=== PATIENT | male | born 1950 | race Caucasian/White ===

== ENCOUNTER 2019-02-10 13:23 | Inpatient (IN) | payer MEDICARE, OTHER ==
[2019-02-10] MEDS ORDERED: IOHEXOL 300MG/ML 30 ML BTL (15:15)
[2019-02-10] MEDS ORDERED: PROPOFOL 20 ML (15:17)
[2019-02-10] MEDS ORDERED: ROCURONIUM 50 MG INJ ×2 (15:17→16:09)
[2019-02-10] MEDS ORDERED: LIDOCAINE 2% (SDV) 5 ML INJ (15:17)
[2019-02-10] MEDS ORDERED: NEOSTIGMINE 3 MG/3 ML SYRINGE (16:10)
[2019-02-10] MEDS ORDERED: GLYCOPYRROLATE 0.4 MG INJ (16:10)
[2019-02-10] MEDS ORDERED: LABETALOL HCL 20MG INJ IV (16:30)
[2019-02-10] MEDS ORDERED: ALBUTEROL 0.083% (NEB) 2.5 MG/3 ML AMP HHN (16:30)
[2019-02-10] MEDS ORDERED: DIPHENHYDRAMINE 50 MG INJ IV (16:30)
[2019-02-10] MEDS ORDERED: ONDANSETRON 4 MG INJ IV ×2 (16:30→17:30)
[2019-02-10] MEDS ORDERED: hydrALAzine 20 MG INJ IV (16:30)
[2019-02-10] MEDS ORDERED: EPHEDrine 25 MG/5 ML SYG IV (16:30)
[2019-02-10] MEDS ORDERED: FENTAnyl 50 MCG/ML VIAL IV ×2 (16:30)
[2019-02-10] MEDS ORDERED: SUGAMMADEX SODIUM 200 MG/2 ML VIAL IV ×2 (16:38→17:00)
[2019-02-10] MEDS ORDERED: HYDROCODONE/APAP (5/325) TAB PO (17:30)
[2019-02-10] MEDS ORDERED: ACETAMINOPHEN 325 MG TAB PO (17:30)
[2019-02-10] MEDS ORDERED: NACL 0.9% 3 ML SYG IV (17:30)
[2019-02-10 17:57] LABS: ADD MAN DIFF? NO
[2019-02-10 18:02] LABS: WHITE BLOOD COUNT 6.2 10^3/ul (4.8-10.8)
[2019-02-10 18:02] LABS: BASOPHILS % 0.3 % (0.0-2.0); EOSINOPHILS # 0.2 10^3/ul (0.0-0.5); EOSINOPHILS % 2.4 % (0.0-7.0); HEMATOCRIT 41.5 % (42.0-52.0); HEMOGLOBIN 13.2 g/dl (14.0-18.0); LYMPHOCYTES # 0.8 10^3/ul (0.8-2.9); LYMPHOCYTES % 12.4 % (15.0-51.0); MEAN CORPUSCULAR HEMOGLOBIN 29.1 pg (29.0-33.0); MEAN CORPUSCULAR HGB CONC 31.8 g/dl (32.0-37.0); MEAN CORPUSCULAR VOLUME 91.6 fl (82.0-101.0); MEAN PLATELET VOLUME 9.5 fl (7.4-10.4); MONOCYTE # 0.4 10^3/ul (0.3-0.9); MONOCYTES % 6.9 % (0.0-11.0); NEUTROPHIL # 4.8 10^3/ul (1.6-7.5); NEUTROPHILS % 77.7 % (39.0-77.0); PLATELET COUNT 121 10^3/UL (140-415); RED BLOOD COUNT 4.53 10^6/ul (4.70-6.10); RED CELL DISTRIBUTION WIDTH 15.1 % (11.5-14.5)
[2019-02-10 18:16] LABS: AADO2 Arterial 302.7 mmHg (7.0-24.0); Allen Test ACCEPTAB; Arterial Blood Gas Oxygen Sat 99.3 mmHG (95.0-98.0); Arterial COHb 0.6 % (0.0-3.0); Arterial Fraction of Oxyhgb 98.4 % (93.0-99.0); Arterial HCO3 24.5 mmol/L (22.0-26.0); Arterial MetHb 0.3 % (0.0-1.5); Arterial pCO2 35.7 mmhg (35-45); Blood Gas IEPAP 20/5; Blood Gas PS 15; MODE MASK - BIPAP; Site Left Radial
[2019-02-10 18:25] LABS: ALANINE AMINOTRANSFERASE 64 IU/L (13-69); ALBUMIN 3.3 g/dl (3.3-4.9); ALBUMIN/GLOBULIN RATIO 1.17; ALKALINE PHOSPHATASE 116 IU/L (42-121); ANION GAP 7 (5-13); ASPARTATE AMINO TRANSFERASE 79 IU/L (15-46); BILIRUBIN,INDIRECT 1.1 mg/dl (0-1.1); BILIRUBIN,TOTAL 1.3 mg/dl (0.2-1.3); CALCIUM 9.2 mg/dl (8.4-10.2); CARBON DIOXIDE 28 mmol/L (21-31); CHLORIDE 104 mmol/L (97-110); Estimated GFR 44 mL/min (>60); GLUCOSE 151 mg/dl (70-220); POTASSIUM 3.8 mmol/L (3.5-5.1); SODIUM 139 mmol/L (135-144); TOTAL PROTEIN 6.1 g/dl (6.1-8.1)
[2019-02-10 18:33] LABS: BLOOD UREA NITROGEN 24 mg/dl (7-20)
[2019-02-10 18:33] LABS: B-TYPE NATRIURETIC PEPTIDE 1580 PG/ML (0-125)
[2019-02-10 18:34] LABS: CREATININE 1.58 mg/dl (0.61-1.24)
[2019-02-10 18:35] LABS: TROPONIN-I 0.028 ng/ml (0.000-0.120)
[2019-02-10] MEDS: LACTATED RINGER'S 1,000 ML IV (18:42)
[2019-02-10] MEDS: PIPER-TAZO 3.375 GM IV (PMX) 100 ML IVPB ×2 (18:46→23:30)
[2019-02-10] MEDS: INDOMETHACIN 50 MG SUPP PR (19:39)
[2019-02-10 19:45] LABS: PLATELET COUNT 121 10^3/UL (140-415)
[2019-02-10 20:40] LABS: INR 1.19; PARTIAL THROMBOPLASTIN TIME 21.3 Sec (23.0-35.0); PROTIME 15.2 Sec (11.9-14.9); PT RATIO 1.2
[2019-02-10 20:41] LABS: THROMBIN TIME 14.9 SEC (13.8-19.1)
[2019-02-10] MEDS ORDERED: NON-FORMULARY/PATIENT OWN MED (Simvastatin 10 MG) PO (21:00)
[2019-02-10] MEDS: FUROSEMIDE 40 MG INJ IV (21:19)
[2019-02-10] MEDS: WARFARIN 5 MG TAB PO (21:27)
[2019-02-10] MEDS: FEBUXOSTAT 40 MG TABLET PO (21:27)
[2019-02-10] MEDS: ATORVASTATIN 10 MG TAB PO (21:28)
[2019-02-11 01:20] LABS: TROPONIN-I 0.072 ng/ml (0.000-0.120)
[2019-02-11 05:31] LABS: ADD MAN DIFF? NO
[2019-02-11 05:43] LABS: WHITE BLOOD COUNT 8.7 10^3/ul (4.8-10.8)
[2019-02-11 05:43] LABS: BASOPHIL # 0.1 10^3/ul (0.0-0.1); BASOPHILS % 0.6 % (0.0-2.0); EOSINOPHILS # 0.2 10^3/ul (0.0-0.5); EOSINOPHILS % 1.8 % (0.0-7.0); HEMATOCRIT 42.6 % (42.0-52.0); HEMOGLOBIN 13.3 g/dl (14.0-18.0); LYMPHOCYTES % 11.3 % (15.0-51.0); MEAN CORPUSCULAR HEMOGLOBIN 28.7 pg (29.0-33.0); MEAN CORPUSCULAR HGB CONC 31.2 g/dl (32.0-37.0); MEAN PLATELET VOLUME 9.5 fl (7.4-10.4); MONOCYTE # 0.8 10^3/ul (0.3-0.9); MONOCYTES % 8.7 % (0.0-11.0); NEUTROPHIL # 6.7 10^3/ul (1.6-7.5); NEUTROPHILS % 77.4 % (39.0-77.0); PLATELET COUNT 131 10^3/UL (140-415); RED BLOOD COUNT 4.63 10^6/ul (4.70-6.10); RED CELL DISTRIBUTION WIDTH 14.6 % (11.5-14.5)
[2019-02-11 05:49] LABS: HEMOGLOBIN A1C 4.8 % (0-5.9)
[2019-02-11 06:07] LABS: ALANINE AMINOTRANSFERASE 71 IU/L (13-69); ALKALINE PHOSPHATASE 99 IU/L (42-121); ANION GAP 6 (5-13); ASPARTATE AMINO TRANSFERASE 62 IU/L (15-46); BILIRUBIN,INDIRECT 1.3 mg/dl (0-1.1); BILIRUBIN,TOTAL 1.3 mg/dl (0.2-1.3); BLOOD UREA NITROGEN 28 mg/dl (7-20); CALCIUM 9.2 mg/dl (8.4-10.2); CARBON DIOXIDE 32 mmol/L (21-31); CHLORIDE 103 mmol/L (97-110); CREATININE 1.75 mg/dl (0.61-1.24); Estimated GFR 39 mL/min (>60); GLUCOSE 71 mg/dl (70-220); MAGNESIUM 1.7 mg/dl (1.7-2.5); POTASSIUM 4.5 mmol/L (3.5-5.1); SODIUM 141 mmol/L (135-144)
[2019-02-11] MEDS: PIPER-TAZO 3.375 GM IV (PMX) 100 ML IVPB ×3 (06:12→18:55)
[2019-02-11] MEDS: LEVOTHYROXINE 150 MCG TAB PO (06:13)
[2019-02-11 06:20] LABS: TROPONIN-I 0.085 ng/ml (0.000-0.120)
[2019-02-11] MEDS: BENAZEPRIL 5 MG TAB PO (09:00)
[2019-02-11] MEDS ORDERED: FUROSEMIDE 40 MG TAB PO (09:00)
[2019-02-11] MEDS: FUROSEMIDE 40 MG INJ IV (09:04)
[2019-02-11] MEDS: ASCORBIC ACID 500 MG TAB PO (09:05)
[2019-02-11] MEDS: COLCHICINE 0.6 MG CAP PO (09:05)
[2019-02-11] MEDS: MULTIVITAMINS THERAPEUTIC TAB PO (09:06)
[2019-02-11] MEDS: PANTOPRAZOLE (EC) 40 MG TAB PO (09:06)
[2019-02-11] MEDS: AMIODARONE 200 MG TAB PO (09:06)
[2019-02-11] MEDS: CHOLECALCIFEROL 1,000 UNIT TAB PO (09:06)
[2019-02-11] MEDS: SPIRONOLACTONE 25 MG TAB PO (09:06)
[2019-02-11 12:12] LABS: ADD UMIC YES; UR ASCORBIC ACID 40 mg/dL (NEGATIVE); UR BACTERIA FEW /HPF (NONE SEEN); UR BILIRUBIN (Dip) NEGATIVE (NEGATIVE); UR BLOOD (Dip) NEGATIVE (NEGATIVE); UR CLARITY CLOUDY (CLEAR); UR COLOR AMBER (YELLOW); UR GLUCOSE (Dip) NEGATIVE (NEGATIVE); UR KETONES (Dip) TRACE mg/dL (NEGATIVE); UR LEUKOCYTE ESTERASE (Dip) 2+ Leu/ul (NEGATIVE); UR NITRITE (Dip) NEGATIVE (NEGATIVE); UR RBC 7 /HPF (0-5); UR SPECIFIC GRAVITY (Dip) 1.014 (1.003-1.030); UR TOTAL PROTEIN (Dip) 1+ mg/dl (NEGATIVE); UR UROBILINOGEN (Dip) NEGATIVE (NEGATIVE); UR WBC 175 /HPF (0-5)
[2019-02-11 12:28] LABS: CREATININE,URINE RANDOM 81.98 mg/dl (20-370)
[2019-02-11 12:28] LABS: SODIUM,URINE RANDOM 100 mmol/L (30-90)
[2019-02-11 13:45] LABS: PROCALCITONIN 0.22 ng/mL (0.00-0.10)
[2019-02-11] MEDS: FEBUXOSTAT 40 MG TABLET PO (21:05)
[2019-02-11] MEDS: ATORVASTATIN 10 MG TAB PO (21:06)
[2019-02-11] MEDS: WARFARIN 5 MG TAB PO (21:07)
[2019-02-12] MEDS: PIPER-TAZO 3.375 GM IV (PMX) 100 ML IVPB ×2 (00:17→06:03)
[2019-02-12] MEDS: LEVOTHYROXINE 150 MCG TAB PO (05:56)
[2019-02-12 06:07] LABS: ADD MAN DIFF? NO
[2019-02-12 06:19] LABS: BASOPHILS % 0.7 % (0.0-2.0); EOSINOPHILS # 0.3 10^3/ul (0.0-0.5); EOSINOPHILS % 5.5 % (0.0-7.0); HEMATOCRIT 40.2 % (42.0-52.0); HEMOGLOBIN 12.8 g/dl (14.0-18.0); LYMPHOCYTES # 0.9 10^3/ul (0.8-2.9); LYMPHOCYTES % 14.8 % (15.0-51.0); MEAN CORPUSCULAR HGB CONC 31.8 g/dl (32.0-37.0); MEAN PLATELET VOLUME 9.4 fl (7.4-10.4); MONOCYTE # 0.5 10^3/ul (0.3-0.9); MONOCYTES % 8.8 % (0.0-11.0); NEUTROPHIL # 4.2 10^3/ul (1.6-7.5); PLATELET COUNT 111 10^3/UL (140-415); RED BLOOD COUNT 4.42 10^6/ul (4.70-6.10); RED CELL DISTRIBUTION WIDTH 15.1 % (11.5-14.5)
[2019-02-12 06:32] LABS: INR 1.55; PROTIME 18.7 Sec (11.9-14.9); PT RATIO 1.5
[2019-02-12 06:58] LABS: ANION GAP 5 (5-13); BLOOD UREA NITROGEN 27 mg/dl (7-20); CALCIUM 8.7 mg/dl (8.4-10.2); CARBON DIOXIDE 29 mmol/L (21-31); CHLORIDE 104 mmol/L (97-110); CREATININE 1.82 mg/dl (0.61-1.24); Estimated GFR 37 mL/min (>60); GLUCOSE 82 mg/dl (70-220); MAGNESIUM 1.6 mg/dl (1.7-2.5); PHOSPHORUS 3.9 mg/dl (2.5-4.9); SODIUM 138 mmol/L (135-144)
[2019-02-12 07:23] LABS: POTASSIUM 3.4 mmol/L (3.5-5.1)
[2019-02-12] MEDS: CHOLECALCIFEROL 1,000 UNIT TAB PO (08:19)
[2019-02-12] MEDS: SPIRONOLACTONE 25 MG TAB PO (08:20)
[2019-02-12] MEDS: COLCHICINE 0.6 MG CAP PO (08:20)
[2019-02-12] MEDS: AMIODARONE 200 MG TAB PO (08:20)
[2019-02-12] MEDS: PANTOPRAZOLE (EC) 40 MG TAB PO (08:21)
[2019-02-12] MEDS: MULTIVITAMINS THERAPEUTIC TAB PO (08:21)
[2019-02-12] MEDS: FUROSEMIDE 40 MG TAB PO (08:21)
[2019-02-12] MEDS: ASCORBIC ACID 500 MG TAB PO (08:21)
[2019-02-12] MEDS: BENAZEPRIL 5 MG TAB PO (08:24)
[2019-02-12] MEDS: POTASSIUM CHLORIDE (SR) 20 MEQ TAB PO (09:10)
[2019-02-12] MEDS: MAGNESIUM OXIDE 400 MG TAB PO (09:10)
[2019-02-12 09:36] LABS: PROCALCITONIN 0.25 ng/mL (0.00-0.10)
[2019-02-12 16:07] LABS: CREATININE, RANDOM URINE 83 mg/dL (20-320); MICROALBUMIN 13.5 mg/dL; MICROALBUMIN/CREATININE RATIO 163 (<30)
== END 2019-02-12 17:54 | disposition home or self-care (01) | DRG 291 ==
LOC: GIL 13:23 → REC 17:33 → ICU 18:36 → TEL 02-11 12:40
PROVIDERS: Internal Medicine
PROC: 0FPB8DZ Removal of Intraluminal Device from Hepatobiliary Duct, Via Natural or Artificial Opening Endoscopic (ICD-10-PCS; principal; 2019-02-10 15:33)
PROC: 0FC98ZZ Extirpation of Matter from Common Bile Duct, Via Natural or Artificial Opening Endoscopic (ICD-10-PCS; 2019-02-10 15:33)
PROC: 5A09357 Assistance with Respiratory Ventilation, Less than 24 Consecutive Hours, Continuous Positive Airway Pressure (ICD-10-PCS; 2019-02-10 15:33)
PROC: 4A033R1 Measurement of Arterial Saturation, Peripheral, Percutaneous Approach (ICD-10-PCS; 2019-02-10 15:33)
DX: I13.0 Hypertensive heart and chronic kidney disease with heart failure and stage 1 through stage 4 chronic kidney disease, or unspecified chronic kidney disease (principal); J96.01 Acute respiratory failure with hypoxia; I50.23 Acute on chronic systolic (congestive) heart failure; E87.3 Alkalosis; N17.9 Acute kidney failure, unspecified; Z46.89 Encounter for fitting and adjustment of other specified devices; N18.3 Chronic kidney disease, stage 3 (moderate); E11.22 Type 2 diabetes mellitus with diabetic chronic kidney disease; E03.9 Hypothyroidism, unspecified; M10.9 Gout, unspecified; G47.33 Obstructive sleep apnea (adult) (pediatric); K21.9 Gastro-esophageal reflux disease without esophagitis; I42.9 Cardiomyopathy, unspecified; E66.9 Obesity, unspecified; D64.9 Anemia, unspecified; E66.01 Morbid (severe) obesity due to excess calories; I48.2 Chronic atrial fibrillation; Z95.810 Presence of automatic (implantable) cardiac defibrillator; Z79.01 Long term (current) use of anticoagulants
CPT/HCPCS: 36600; 71045; 74330; 80048; 80053; 81001; 81003; 82043; 82803; 82962; 83036; 83735; 83880; 84100; 84145; 84155; 84300; 84484; 85025; 85049; 85610; 85670; 85730; 93005; 93306; 94660